=== PATIENT | female | born 1985 ===

== ENCOUNTER 2020-03-11 11:00 | Outpatient (RCR) | payer OTHER, SELFPAY ==
--- NOTE | 2020-02-10 16:59 | PTOPEVAL ---
INITIAL PHYSICAL THERAPY EVALUATION and PLAN OF CARE Thank you for referring Noah Domingo to [facility]. She will be seen 2x/wk x 4 wks. Please review, sign, date and return this plan of care LUIZ. I agree with and certify that the following plan of care is medically necessary. Referring Physician Date Admitting Provider: Attending Provider: PHYSICIAN NOT ON STAFF Referring Provider: *PT Outpatient Evaluation Start: 02/10/20 12:52 Freq: Status: Active Protocol: Document 02/10/20 12:35 ERICA (Rec: 02/10/20 13:55 ERICA [id number]) Therapy Assessment Status Assessment Status Assessment Status Evaluation Outpatient Past Medical History Past Medical History Source of Past Medical History Patient Neurological History Hx Neurological Disorders No Significant History Cardiovascular History Hx Cardiac Disorders No Significant History Respiratory History Hx Respiratory Disorders No Significant History Gastrointestinal History Hx Gastrointestinal Disorders No Significant History Genitourinary History Hx Genitourinary Disorders No Significant History Musculoskeletal History Hx Back Pain Yes: back pain with Endocrine History Hx Endocrine Disorders No Significant History Evaluation Information Problem Diagnosis dorsalgia, , pelvic and perineal pain Onset November 2019 Additional Evaluation Detail Due date 05/08/2020 - 27 wks at present Subjective Information 3rd - no difficulty Query Text:As Reported By Patient/ with labor and delivery with Family other 2 births - 17 y.o., 6 y. o. C sections - due to decreased ability for her tissues to dilate - 2nd child' s head was shaped a little funny November 2019 - pain with walking - unable to walk too long - after sitting for awhile - difficulty with getting up, difficulty with getting up in the mornings - takes about 20 minutes to get going Sleeping - mainly been sleeping on back - way she wakes up - but will start in L sidelying Prior Level of Function Activity Level (Last 3 Months) Hand Dominance Right Medications Home Meds (Include: OTC, RX, Vitamins, vitamins Herbals, Dose, Route,and Frequency)
--- NOTE | 2020-02-26 15:05 | PCPTNOTE ---
Patient did not show up for scheduled appointment this date.
--- NOTE | 2020-03-04 15:01 | PCPTNOTE ---
Patient did not show up for scheduled appointment this date.
--- NOTE | 2020-03-09 14:19 | PCPTNOTE ---
Patient did not show up for scheduled appointment this date.
--- NOTE | 2020-03-11 11:14 | PCPTNOTE ---
PHYSICAL THERAPY DISCHARGE NOTE Admitting Provider: Attending Provider: PHYSICIAN NOT ON STAFF Patient:Noah Domingo Date of :1985 Noah has not returned for any further treatments since 03/02/2020, therefore she will be discharged at this time. Noah?s initial visit was on 02/10/2020 12:30 and she had a total of 3 visits. She did not show for 4 visits including today's re-evaluation appointment. The goals have been partially met. Thank you for referring Noah to [facility]. Please review, sign, date and return this discharge summary LUIZ. I have been updated about Noah's current status and I agree with discharge from the above service at this time. Referring Physician Date
== END 2020-03-12 07:51 | disposition home or self-care (01) ==
LOC: ANHPT 11:00
DX: O99.89 Other specified diseases and conditions complicating pregnancy, childbirth and the puerperium (principal); M54.9 Dorsalgia, unspecified; R10.2 Pelvic and perineal pain; Z3A.27 27 weeks gestation of pregnancy
CPT/HCPCS: 97110; 97140; 97162